=== PATIENT | male | born 1995 | race Caucasian/White ===

== ENCOUNTER 2018-10-25 18:31 | Emergency (ER) | payer OTHER ==
[~2018-10-25] VITALS: Ht 167.6 cm; Wt 65.7 kg
[~2018-10-25 18:31] MED LIST: CEPH500C5 PO; ONDA8TAB6 PO
[2018-10-25 18:54] VITALS: BP 108/61
--- NOTE | 2018-10-25 19:05 | NUR ---
PT HERE WITH C/O TOOTH PAIN FOR THE LAST 2 DAYS, DOES NOT HAVE A DENTIST.
--- NOTE | 2018-10-25 20:57 | NUR ---
pt eloped from room. call placed to number on file. Spoke with "Colin". He reports that he felt that he waited to long and is now at another facility being seen. VINCENT Castelan informed.
== END 2018-10-25 20:59 | disposition left against medical advice (07) ==
LOC: ER 18:32
DX: K08.89 Other specified disorders of teeth and supporting structures (principal); Z53.21 Procedure and treatment not carried out due to patient leaving prior to being seen by health care provider

== ENCOUNTER 2019-05-16 02:41 | Emergency (ER) | payer OTHER ==
[~2019-05-16] VITALS: Ht 167.6 cm; Wt 72.7 kg
--- NOTE | 2019-05-16 03:00 | NUR ---
PATIENT PROVIDED LIST OF MEDICAL DENTISTS HE DOES NOT HAVE ONE.
[2019-05-16] MEDS ORDERED: amox tr/potassium clavulanate 875/125mg TAB PO ONE (04:25)
[2019-05-16] MEDS ORDERED: HYDROcodone/acetaminophen 10/325mg tab PO ONE (04:25)
[2019-05-16] MEDS ORDERED: CefTRIAXone 1000mg IM Kit (w/lidocaine diluent) IM ONE (04:25)
[2019-05-16] MEDS ORDERED: naproxen 500mg tablet PO ONE (04:25)
[2019-05-16] MEDS ORDERED: NAPR-56 PO (04:28)
[2019-05-16] MEDS ORDERED: AMOX-422 PO (04:28)
[2019-05-16] MEDS ORDERED: HYDR-4353 PO (04:28)
[2019-05-16] MEDS ORDERED: dexamethasone 4mg tablet PO ONE (04:40)
[2019-05-16 04:46] VITALS: BP 128/77
--- NOTE | 2019-05-16 05:13 | NUR ---
PATIENT LEFT PRIOR TO RECEIVING DISCHARGE PAPERS INCLUDING HIS ANTIBIOTICS. I CALLED PATIENT'S PHONE LISTED @ AND LEFT A MESSAGE TO RETURN TO THE ER TO RANCH SUPERVISOR HIS PRESCRIPTIONS AND DISCHARGE PAPERWORK AND ER PHONE NUMBER. FIELD COIL WINDER MAAME INFORMED. PATIENT WAS SEEN FOR FACIAL CELLULITIS, PERIAPICAL ABCESS, DENTAL CARIES AND TOBACCO ABUSE.
--- NOTE | 2019-05-16 07:51 | NUR ---
PT CALLED, STATING THAT HE DID NOT RECEIVED HIS RX FOR TOOTH ABSCESS. PT ADMITS TO LEAVING BEFORE RECEIVING HIS DC INSTRUCTIONS. DR BARKER NOTIFIED, APPROVED FOR RX'S TO BE CALLED IN FOR AUGMENTIN AND NAPROXEN, HOWEVER, PT WILL NEED TO COME BACK TO THE ER TO RECEIVED A RX FOR THE NORCO 10/325MG. PT NOTIFIED THAT RX WILL BE CALLED IN FOR ALL BUT THE NORCO, PT REQUESTED THAT RX BE CALLED INTO [facility] ON [address] AND THAT HE WILL RETURN FOR NORCO RX IF NEEDED. AUGNENTIN 875/125, 1 TAB PO Q12 HRS X10 DAYS AND NAROPXEN 500MG TAB, 1 TAB PO Q12 HRS x20 TABLETS CALLED INTO [facility] [address] REQUESTED BY PT.
== END 2019-05-16 05:16 | disposition home or self-care (01) ==
LOC: ER 02:41
DX: K04.7 Periapical abscess without sinus (principal); K02.9 Dental caries, unspecified; L03.211 Cellulitis of face; F17.200 Nicotine dependence, unspecified, uncomplicated; F11.90 Opioid use, unspecified, uncomplicated; F15.90 Other stimulant use, unspecified, uncomplicated; F10.99 Alcohol use, unspecified with unspecified alcohol-induced disorder; Z79.899 Other long term (current) drug therapy; Y90.9 Presence of alcohol in blood, level not specified
CPT/HCPCS: 96372; 99284; J0696

== ENCOUNTER 2020-03-01 04:41 | Emergency (ER) | payer MEDICAID, OTHER ==
[~2020-03-01] VITALS: Ht 167.6 cm; Wt 68.2 kg
[~2020-03-01 04:41] MED LIST changes: -CEPH500C5 PO
[2020-03-01] MEDS ORDERED: METH4TAB81 PO (05:05)
[2020-03-01] MEDS ORDERED: ONDA4TAB6 PO (05:05)
[2020-03-01] MEDS ORDERED: HYDR-3965 PO (05:05)
[2020-03-01] MEDS ORDERED: METR500T PO (05:05)
[2020-03-01] MEDS ORDERED: AMOX500C2 PO (05:05)
[2020-03-01] MEDS ORDERED: ibuprofen tablet 400 MG TABLET PO ONE (05:10)
[2020-03-01] MEDS ORDERED: acetaminophen 325mg tablet PO ONE (05:10)
[2020-03-01 05:23] VITALS: BP 166/97
== END 2020-03-01 05:24 | disposition home or self-care (01) ==
LOC: ER 04:42
DX: K04.7 Periapical abscess without sinus (principal); K02.9 Dental caries, unspecified; J32.0 Chronic maxillary sinusitis; K04.1 Necrosis of pulp; F15.90 Other stimulant use, unspecified, uncomplicated; F11.90 Opioid use, unspecified, uncomplicated
CPT/HCPCS: 99283

== ENCOUNTER 2020-07-18 16:01 | Emergency (ER) | payer MEDICAID, OTHER ==
[~2020-07-18] VITALS: Ht 170.2 cm; Wt 75.3 kg
[~2020-07-18 16:01] MED LIST changes: +METH4TAB81 PO; +ONDA4TAB6 PO
[2020-07-18 16:05] VITALS: BP 117/72
[2020-07-18] MEDS ORDERED: NAPR-56 PO (16:27)
[2020-07-18] MEDS ORDERED: PENI250T2 PO (16:27)
== END 2020-07-18 16:33 | disposition home or self-care (01) ==
LOC: ER 16:02
DX: K04.7 Periapical abscess without sinus (principal); F15.90 Other stimulant use, unspecified, uncomplicated; F11.90 Opioid use, unspecified, uncomplicated; Z72.89 Other problems related to lifestyle; Z79.2 Long term (current) use of antibiotics; Z79.899 Other long term (current) drug therapy
CPT/HCPCS: 99283

== ENCOUNTER 2020-10-24 22:47 | Emergency (ER) | payer SELFPAY ==
[~2020-10-24] VITALS: Ht 167.6 cm; Wt 68.2 kg
[2020-10-24] MEDS ORDERED: normal saline 1000ML IV soln IVB ONE (23:30)
[2020-10-24] MEDS ORDERED: ondansetron/PF 4mg/2ml inj IV ONE (23:30)
[2020-10-24] MEDS ORDERED: pantoprazole 40 MG vial IV ONE (23:30)
[2020-10-24 23:48] VITALS: BP 119/69
[2020-10-25 00:04] LABS: HEMOGLOBIN 13.2 g/dl (14.0-17.9); LYMPHOCYTES # (AUTO) 0.9 X10'3 (1.1-4.8)
[2020-10-25 00:05] LABS: BASOPHILS % (AUTO) 0.5 % (0-1); EOSINOPHILS # (AUTO) 0.2 X10'3 (0-0.9); EOSINOPHILS % (AUTO) 2.1 % (0-6); HEMATOCRIT 40.3 % (42.0-52.0); LYMPHOCYTES % (AUTO) 10.1 % (21-51); MEAN CORPUSCULAR HEMOGLOBIN 27.3 PG (27.0-31.0); MEAN CORPUSCULAR HGB CONC 32.9 g/dL (33.0-36.5); MEAN CORPUSCULAR VOLUME 83.1 FL (78-98); MEAN PLATELET VOLUME 9.1 FL (7.4-10.4); MONOCYTES % (AUTO) 11.4 % (2-12); NEUTROPHILS # (AUTO) 6.8 X10'3 (1.8-7.7); NEUTROPHILS % (AUTO) 75.9 % (42-75); PLATELET COUNT 164 X10'3 (140-440); RED BLOOD COUNT 4.85 X10'6 (4.70-6.10); RED CELL DISTRIBUTION WIDTH 15.1 % (11.5-14.5); WHITE BLOOD COUNT 8.9 X10'3 (4.5-11.0)
[2020-10-25 00:09] LABS: ALANINE AMINOTRANSFERASE 77 U/L (12-78); ALBUMIN 3.6 G/DL (3.4-5.0); ALKALINE PHOSPHATASE 74 IU/L (46-116); ANION GAP 8 (8-16); ASPARTATE AMINO TRANSFERASE 29 U/L (10-37); BILIRUBIN,TOTAL 1.2 MG/DL (0.1-1.0); BLOOD UREA NITROGEN 11 MG/DL (7-18); BUN/CREATININE RATIO 12.8 (5.4-32.0); CALCIUM 8.9 MG/DL (8.5-10.1); CHLORIDE 104 MMOL/L (99-107); CREATININE 0.86 MG/DL (0.60-1.10); GLUCOSE 81 MG/DL (70-104); LIPASE < 50 U/L (73-393); POTASSIUM 3.6 MMOL/L (3.5-5.1); SODIUM 139 MMOL/L (135-145); TOTAL CARBON DIOXIDE 27.3 MMOL/L (24-32); TOTAL PROTEIN 7.1 G/DL (6.4-8.2); eGFR > 90 ML/MIN
[2020-10-25] MEDS ORDERED: PANT-47 PO (00:37)
[2020-10-25] MEDS ORDERED: ONDA8TAB13 PO (00:37)
--- NOTE | 2020-10-25 01:19 | NUR ---
FLUIDS WERE FININHSED AND PT WAS GIVEN WATER FOR A PO CHALLENGE, WILL REASSESS
--- NOTE | 2020-10-25 01:38 | NUR ---
Went into discharge patient and he was not found. Checked bathroom and still couldn't find patient. Registration stated pt had left. Pt not visualized by main ER staff leaving. IV was intact upon last seeing pt. Called Pt cell phone which was off, and left a message stating to come back in and get it removed. No sign of IV in any trash cans in vicinity.
== END 2020-10-25 01:42 | disposition home or self-care (01) ==
LOC: ER 22:48
DX: R11.2 Nausea with vomiting, unspecified (principal); F17.200 Nicotine dependence, unspecified, uncomplicated; F12.90 Cannabis use, unspecified, uncomplicated; F15.90 Other stimulant use, unspecified, uncomplicated; F11.90 Opioid use, unspecified, uncomplicated; Z79.899 Other long term (current) drug therapy
CPT/HCPCS: 36415; 80053; 83690; 85025; 96361; 96374; 96375; 99284; C9113; J2405; J7030

== ENCOUNTER 2022-02-12 19:48 | Emergency (ER) | payer MEDICAID ==
[~2022-02-12] VITALS: Ht 167.6 cm; Wt 81.8 kg
[~2022-02-12 19:48] MED LIST changes: +ONDA8TAB13 PO; +PANT-47 PO
[2022-02-12 20:13] VITALS: BP 122/80
== END 2022-02-12 22:29 | disposition left against medical advice (07) ==
LOC: ER 19:49
DX: K13.0 Diseases of lips (principal); Z53.21 Procedure and treatment not carried out due to patient leaving prior to being seen by health care provider

== ENCOUNTER 2022-12-06 12:38 | Emergency (ER) | payer MEDICAID ==
[~2022-12-06] VITALS: Ht 170.2 cm; Wt 82.0 kg
[2022-12-06 12:42] VITALS: BP 162/101
[2022-12-06] MEDS ORDERED: HYDR-3973 PO (13:17)
[2022-12-06] MEDS ORDERED: CHLO473M3 PO (13:17)
[2022-12-06] MEDS ORDERED: CLIN-97 PO (13:17)
== END 2022-12-06 13:32 | disposition home or self-care (01) ==
LOC: ER 12:39
DX: K04.7 Periapical abscess without sinus (principal); Z79.2 Long term (current) use of antibiotics; Z79.899 Other long term (current) drug therapy
CPT/HCPCS: 99283

== ENCOUNTER 2024-03-01 18:50 | Emergency (ER) | payer MEDICAID ==
[~2024-03-01] VITALS: Ht 165.1 cm; Wt 72.7 kg
[~2024-03-01 18:50] MED LIST changes: +CHLO473M13 PO; +CLIN-97 PO; +ONDA-245 PO; -ONDA8TAB13 PO
[2024-03-01 20:20] VITALS: BP 126/81; PULSE 90; RESP 16; O2SAT 100
[2024-03-01 21:14] VITALS: TEMP 98.4
== END 2024-03-01 21:20 | disposition left against medical advice (07) ==
LOC: ER 18:51
DX: G43.909 Migraine, unspecified, not intractable, without status migrainosus (principal); R11.2 Nausea with vomiting, unspecified; Z53.21 Procedure and treatment not carried out due to patient leaving prior to being seen by health care provider